=== PATIENT | female | born 1995 | race Caucasian/White ===

== ENCOUNTER 2019-04-13 10:17 | Emergency (ER) | payer BC | END 2019-04-13 15:37 | disposition home or self-care (01) | DX: R46.2 Strange and inexplicable behavior (principal) | CPT/HCPCS: 36415; 51702; 80048; 80076; 80305; 80307; 80329; 81001; 84703; 85025; 87077; 87086; 99284; G0480 ==

== ENCOUNTER 2019-10-13 10:34 | Inpatient (IN) | payer BC ==
[2019-10-13] VITALS (18 sets, daily range): BP systolic 92–117; BP diastolic 52–67
[~2019-10-13] VITALS: Ht 165.1 cm; Wt 51.3 kg
--- NOTE | 2019-10-13 10:40 | NUR ---
PT [facility] HOME TO ER BED 05. PER REPORT PT WAS FOUND BY FAMILY AT AROUND 1030 IN BED UNRESPONSIVE W/ BOTTLE OF BENADRYL AT BEDSIDE. PT WAS GIVEN NARCAN 4MG IV TOTAL. STILL UNRESPONSIVE. PT PLACED ON MONITOR, TACHY. NO RESPONSE TO ANY PAIN STIMULI. SATTING 100% AWAITING FOR MD MARCOS.
--- NOTE | 2019-10-13 10:46 | NUR ---
DR GARCIA AT BEDSIDE
[2019-10-13] MEDS ORDERED: ONDANSETRON HCL/PF 4 MG/2 ML VIAL ONE (10:49)
--- NOTE | 2019-10-13 10:52 | NUR ---
CALLED POISON CONTROL.
--- NOTE | 2019-10-13 10:55 | NUR ---
RT Pt received unarousable with mild abdominal muscle usage. Pt placed with a nasopharyngeal and on 6L simple mask. Pt has normal breathing and equal bilateral breath sounds and chest rise post nasopharyngeal. Dr. Ware notified and aware.
[2019-10-13 10:59] LABS: BASOPHILS % (AUTO) 0.6 % (0.0-2.0); EOSINOPHILS % (AUTO) 0.1 % (0.0-6.0); HEMATOCRIT 39 % (33-45); LYMPHOCYTES # (AUTO) 1.9 /CMM (0.8-4.8); MEAN CORPUSCULAR HGB CONC 33 g/dl (31.0-36.0); MEAN CORPUSCULAR VOLUME 89 fL (82-100); MONOCYTES # (AUTO) 0.1 /CMM (0.1-1.30); MONOCYTES % (AUTO) 2.1 % (2.0-12.0); NEUTROPHILS # (AUTO) 4.2 /CMM (1.8-8.9); NEUTROPHILS % (AUTO) 67.2 % (43.0-81.0); PLATELET COUNT (AUTO) 244 /CMM (150-450); RED BLOOD CELL COUNT(AUTO) 4.36 MIL/uL (4.0-5.2); WHITE BLOOD COUNT (AUTO) 6.2 K/uL (4.3-11.0)
[2019-10-13] MEDS ORDERED: IV NS 0.9% 1,000 ML BAG IV ONE (11:00)
[2019-10-13] MEDS ORDERED: ONDANSETRON HCL/PF 4 MG/2 ML VIAL IVP ONE (11:00)
[2019-10-13 11:01] LABS: APPEARANCE,URINE Clear (CLEAR); BILIRUBIN,URINE Negative (NEGATIVE); BLOOD, URINE Large Ery/uL (NEGATIVE); COLOR,URINE Yellow (YELLOW); KETONES,URINE 15 (NEGATIVE); LEUKOCYTE ESTERASE ,URINE Negative (NEGATIVE); NITRITE, URINE Negative (NEGATIVE); PH,URINE 6.5 (5.0-8.0); PROTEIN,URINE Negative (NEGATIVE); UGLUCOSE Negative (NEGATIVE); UROBILINOGEN,URINE 0.2 EU/dL (0.2)
[2019-10-13] MEDS ORDERED: LORA-258 PO (11:01)
[2019-10-13] MEDS ORDERED: LAMO25TA10 PO (11:01)
[2019-10-13] MEDS ORDERED: DIPH25CA83 PO (11:01)
[2019-10-13] MEDS ORDERED: TEMA15CA PO (11:01)
[2019-10-13 11:10] LABS: CALCIUM, SERUM 7.8 mg/dL (8.5-10.1); CARBON DIOXIDE 27 mmol/L (21-32); CHLORIDE 106 mmol/L (98-107); CREATININE 0.8 mg/dL (0.6-1.3); GLUCOSE 116 mg/dL (74-106); POTASSIUM 3.8 mmol/L (3.5-5.1); SODIUM SERUM 145 mmol/L (136-145); UREA NITROGEN, BLOOD 7 mg/dL (7-18)
[2019-10-13] MEDS ORDERED: Magnesium 1GM/D5W 100ML PREMIX 200 ML IV ONE (11:12)
[2019-10-13] MEDS: Magnesium 1GM/D5W 100ML PREMIX 100 ML IV SCH ×2 (11:13→12:13)
[2019-10-13 11:15] LABS: ALANINE AMINOTRANSFERASE 11 U/L (12-78); ALBUMIN 3.8 g/dL (3.4-5.0); ALCOHOL, BLOOD 80 mg/dL (0-0); ALKALINE PHOSPHATASE 55 U/L (46-116); ASPARTATE AMINOTRANSFERASE 12 U/L (15-37); BILIRUBIN,DIRECT 0.1 mg/dL (0.0-0.2); BILIRUBIN,TOTAL 0.4 mg/dL (0.2-1.0); TOTAL PROTEIN, SERUM 7.2 g/dL (6.4-8.2)
--- NOTE | 2019-10-13 11:15 | NUR ---
PAGED [facility].
[2019-10-13 11:16] LABS: ACETAMINOPHEN < 2 ug/ml (10-30); SALICYLATE 1.4 mg/dL (2.8-20.0)
[2019-10-13 11:19] LABS: BACTERIA,URINE Few /HPF (None Seen); RBC,URINE 21-50 /HPF (0-2); SQUAMOUS EPITHELIAL CELL,UR Few /HPF (None Seen); WBC,URINE 0-2 /HPF (0-3)
[2019-10-13] MEDS ORDERED: Calcium Chloride 13.6 MEQ/10ML VIAL IV ONE (11:30)
[2019-10-13] MEDS ORDERED: CALCIUM CHLORIDE 1,000 MG/10 ML DISP.SYRIN ONE (11:37)
--- NOTE | 2019-10-13 11:53 | NUR ---
CALLED NURSING SUP FOR ICU BED.
--- NOTE | 2019-10-13 12:47 | NUR ---
NURSING SUP GAVE ICU BED 257.
[2019-10-13] MEDS ORDERED: MAG HYDROX/AL HYDROX/SIMETH 30 ML UDC PO PRN (13:00)
[2019-10-13] MEDS ORDERED: ONDANSETRON HCL/PF 4 MG/2 ML VIAL IVP PRN (13:00)
[2019-10-13] MEDS ORDERED: Z GUARD REMEDY 2 OZ OINT TP PRN (13:00)
[2019-10-13] MEDS ORDERED: MAGNESIUM HYDROXIDE 30 ML UDC PO PRN (13:00)
[2019-10-13] MEDS ORDERED: LORAZEPAM INJ 2 MG/ML VIAL IV PRN (13:30)
[2019-10-13] MEDS ORDERED: ACTIVATED CHARCOAL 25 GM/120 ML TUBE PO ONE (13:30)
--- NOTE | 2019-10-13 13:35 | NUR ---
report given to adrienne charge nurse for myles; pt transported to icu
[2019-10-13] MEDS: IV NS 0.9% 1,000 ML IV PRN ×2 (13:41→18:30)
--- NOTE | 2019-10-13 14:00 | NUR ---
GLUING MACHINE OPERATOR AUTOMATIC: RON Kincaid called/updated with pt.current condition, neurosatus/comatose, VS, rectal T, ABG (pH 7.35/37/81/20) on r/a, said: give 4 L n/c, see new orders for labs, EKG
--- NOTE | 2019-10-13 14:00 | NUR ---
STRUCTURAL ANALYST: pt is comatose, unable to obtain info for full initial assessment, included suicidal assessment, pt.had suicidal attempts before
[2019-10-13 14:09] LABS: ABG BASE EXCESS -4.5 mmol/L; ABG OXYGEN SATURATION 94.9 % (92.0-98.5); ABG PCO2 37.8 mmHg (35.0-45.0); ABG PH 7.352 (7.350-7.450); ABG PO2 81.5 mmHg (75.0-100.0); COHb 0.6 % (0.5-1.5); MetHb 0.6 % (0.0-1.5); O2Hb 93.8 % (94.0-97.0); SITE, ABG Right Brachial; VENT MODE, BG RA
--- NOTE | 2019-10-13 14:30 | NUR ---
PROFESSOR OF INDUSTRIAL TECHNOLOGY: sent message to RON Kincaid/updated with current neurostatus, is going to see pt, EEG ordered
--- NOTE | 2019-10-13 15:00 | NUR ---
IMAGING SCHEDULER: pt.family is in room/updated with POC, orders
--- NOTE | 2019-10-13 16:15 | NUR ---
COURT CLERK: EEG done, updated with pt.current condition, VS, spoke with pt.family
--- NOTE | 2019-10-13 16:40 | NUR ---
MANNEQUIN MOUNTER: RD notified re order: brain MRI w/o contrast, scheduled on 10/13
--- NOTE | 2019-10-13 17:40 | NUR ---
OFFICE PROFESSIONALS: spoke with poison control x2, included Domingo /updated with pt.VS, current condition, EKG QTc, orders
[2019-10-13] MEDS: ACETAMINOPHEN 650 MG/SUPP.RECT RC PRN (17:55)
--- NOTE | 2019-10-13 18:15 | NUR ---
TRANSMISSION TESTER: RON Kincaid updated with pt neuro status, VS, orders, ordered V Valproic acid, ammonia level, see orders
[2019-10-13 18:20] LABS: CALCIUM, SERUM 7.5 mg/dL (8.5-10.1); CREATININE 0.9 mg/dL (0.6-1.3); MAGNESIUM 2.1 mg/dL (1.8-2.4); POTASSIUM 4.1 mmol/L (3.5-5.1)
--- NOTE | 2019-10-13 18:51 | NUR ---
GERIATRIC NURSE ASSISTANT: called to [facility] unit and sent FS for Dr.Makhani alberts
--- NOTE | 2019-10-13 19:30 | NUR ---
QUALIFIED CRAFT WORKER ELECTRICIAN OPENING NOTES, RECEIVED PATIENT IN BED, NON-RESPONSIVE TO VOICE OR PAIN. PATIENT IS ON RA TOLERATING WELL. NO SOB OR ACUTE DISTRESS NOTED AT THIS TIME. IV ON RAC #18 AND RW #18 PATENT AND FLUSHING WELL NS RUNNING AT 200ML/HR. PATIENT HAS AMMONIA, VALPROIC, PHOS, MAG, CHECK Q4H. EKG Q8H. PATIENT HAS ST ON MONITOR 110, BP IS NORMAL. ANDERSON DRAINING CLEAR/YELLOW URINE TO THE GRAVITY. SAFETY IN IN PLACE, PATIENT IS CLOSE TO THE STATION, BED IN LOW LOCKED POSITION, CALL LIGHT WITHIN REACH, WILL CONTINUE TO MONITOR THE PATIENT CLOSELY.
--- NOTE | 2019-10-13 19:40 | NUR ---
HEMODIALYSIS CATH PLACEMENT AND MID-LINE INSERTION ORDERED BY DR. VÁZQUEZ.
--- NOTE | 2019-10-13 19:45 | NUR ---
EDUCATED THE FAMILY ABOUT THE HD CATH PLACEMENT AND CONSENT FORM WAS SIGH BY FATHER AT THE BEDSIDE.
--- NOTE | 2019-10-13 19:58 | NUR ---
SERUM AMMONIA AND CT OF THE HEAD WO CONTRAST STAT, WAS ORDERED BY DR BERGER TO BE DONE BEFORE DIALYSIS
--- NOTE | 2019-10-13 20:20 | NUR ---
PATIENT TO CT SCAN FOR STAT CT OF THE HEAD MEHRAN LEON, CHARGE NURSE ESCORT THE PATIENT.
--- NOTE | 2019-10-13 21:37 | NUR ---
HEMODIALYSIS CATH INSERTION WAS DONE BY RON ROY.
--- NOTE | 2019-10-13 21:37 | NUR ---
HEMODIALYSIS CATHETER INSERTION Tractor Distributor: [facility] Domingo Faulkner NP Trialysis 13f 30cm Patient has order to insert HD catheter. Informed consent is signed and in chart. Insertion site determined to be right femoral vein. Patient was prepped using sterile technique with chlorhexidine. Patient was covered with a sterile drape and i donned a sterile gown. The insertion site was anesthetized with 1% lidocaine. Needle inserted under ultrasound guidance. Guidewire inserted through needle and needle removed. Small etsee made at insertion site of approximately 2 mm. Dilator inserted over guidewire then removed. Catheter inserted fully over guidewire. Guidewire removed. Blood return at all three ports. Caps placed on each port. Catheter secured with 2 sutures. Biopatch placed and covered with tegaderm. No s/s of complication. Tolerated well with minimal blood loss. Ebl 3ml.
[2019-10-13 22:19] LABS: CALCIUM, SERUM 7.1 mg/dL (8.5-10.1); MAGNESIUM 1.9 mg/dL (1.8-2.4); PHOSPHORUS 2.9 mg/dL (2.5-4.9); POTASSIUM 4.2 mmol/L (3.5-5.1)
--- NOTE | 2019-10-13 23:40 | NUR ---
HEMODIALYSIS IN PROGRESS. WILL CONTINUE TO MONITOR. 0100 PATIENT HAD ONE EPISODE OF EMESIS, MAIL TECHNICIAN, DR GALLARDO WAS NOTIFIED. RT AT BEDSIDE, NT SUCTIONED, WILL MONITOR CLOSELY. 0200 PATIENTS LUNGS ARE CLEAR. 0200 HEMODIALYSIS COMPLETED. NO OUTPUT.
[2019-10-14] VITALS (30 sets, daily range): BP systolic 96–152; BP diastolic 39–94
[2019-10-14] MEDS: LACTULOSE 10 G/15 ML UDC (PYXIS) PR SCH ×2 (00:01→05:43)
[2019-10-14] MEDS: IV NS 0.9% 1,000 ML IV PRN ×5 (00:59→22:08)
[2019-10-14 03:18] LABS: BASOPHILS % (AUTO) 0.3 % (0.0-2.0); HEMATOCRIT 41 % (33-45); HEMOGLOBIN 13.5 g/dL (11.5-14.8); LYMPHOCYTES # (AUTO) 0.7 /CMM (0.8-4.8); LYMPHOCYTES % (AUTO) 18.7 % (20.0-44.0); MEAN CORPUSCULAR HGB CONC 33 g/dl (31.0-36.0); MEAN CORPUSCULAR VOLUME 90 fL (82-100); MONOCYTES # (AUTO) 0.2 /CMM (0.1-1.30); MONOCYTES % (AUTO) 5.5 % (2.0-12.0); NEUTROPHILS # (AUTO) 2.6 /CMM (1.8-8.9); NEUTROPHILS % (AUTO) 75.5 % (43.0-81.0); PLATELET COUNT (AUTO) 180 /CMM (150-450); WHITE BLOOD COUNT (AUTO) 3.5 K/uL (4.3-11.0)
[2019-10-14 03:35] LABS: CALCIUM, SERUM 7.6 mg/dL (8.5-10.1); MAGNESIUM 1.5 mg/dL (1.8-2.4)
[2019-10-14 03:45] LABS: THYROID STIMULATING HORMONE 0.502 uIU/mL (0.358-3.74)
--- NOTE | 2019-10-14 03:50 | NUR ---
CRITICAL LAB VALUE RECEIVED FROM RADHA ROGERS, AMMONIA LEVEL 298 AT 0345, SENIOR ABAP DEVELOPER NOTIFIED AT 0349. NO NEW ORDERS PLACED. Addendum: 10/14/19 at 0743 by SHANIKA GONZALEZ RN 0715, CRITICAL LAB VALUE, AMMONIA LEVEL 256, ENDORSED TO CHARLES. GRESHAM RN
--- NOTE | 2019-10-14 07:00 | NUR ---
SELF SEALING FUEL TANK BUILDER CLOSING NOTES, PATIENT IN BED, STILL NON-RESPONSIVE TO VOICE OR PAIN. PATIENT IS ON 5L MASK, TOLERATING WELL. NO SOB OR ACUTE DISTRESS NOTED AT THIS TIME. IV ON RAC #18 AND RW #18 PATENT AND FLUSHING WELL, PATIENT HAS BONG MID-LINE NS RUNNING AT 200ML/HR. RIGHT FEMORAL CATHETER. . PATIENT HAS AMMONIA Q6H, VALPROIC, PHOS, MAG, CHECK Q4H. EKG Q8H. PATIENT HAS ST ON MONITOR 130's, BP IS NORMAL. ANDERSON DRAINING CLEAR/YELLOW URINE TO THE GRAVITY. SAFETY IN IN PLACE, PATIENT'S ROOM IS CLOSE TO THE STATION, BED IN LOW LOCKED POSITION, CALL LIGHT WITHIN REACH, ENDORSED THE PATIENT TO AM RN FOR MONSTER. Addendum: 10/14/19 at 1944 by MEHRAN ELDRIDGE RN MORTGAGE CONSULTANT - OPENING PATIENT IN BED, STILL NON-RESPONSIVE TO VOICE OR PAIN. PATIENT IS ON 5L MASK, TOLERATING WELL. NO SOB OR ACUTE DISTRESS NOTED AT THIS TIME. IV ON RAC #18 AND RW #18 PATENT AND FLUSHING WELL, PATIENT HAS BONG MID-LINE NS RUNNING AT 200ML/HR. RIGHT FEMORAL CATHETER. . PATIENT HAS AMMONIA Q6H, VALPROIC, PHOS, MAG, CHECK Q4H. EKG Q8H. PATIENT HAS ST ON MONITOR 130's, BP IS NORMAL. ANDERSON DRAINING CLEAR/YELLOW URINE TO THE GRAVITY. SAFETY IN IN PLACE, PATIENT'S ROOM IS CLOSE TO THE STATION, BED IN LOW LOCKED POSITION, CALL LIGHT WITHIN REACH, ENDORSED THE PATIENT TO AM RN FOR MONSTER.
--- NOTE | 2019-10-14 07:45 | NUR ---
AUTO BODY MECHANIC CLOSING NOTES, PATIENT IN BED, STILL NON-RESPONSIVE TO VOICE OR PAIN. PATIENT IS ON 5L MASK, TOLERATING WELL. NO SOB OR ACUTE DISTRESS NOTED AT THIS TIME. IV ON RAC #18 AND RW #18 PATENT AND FLUSHING WELL, PATIENT HAS BONG MID-LINE NS RUNNING AT 200ML/HR. RIGHT FEMORAL CATHETER WAS INSERTED FOR HD. HD WAS DONE AND NO OUTPUT WAS MADE. PATIENT HAS AMMONIA Q6H, VALPROIC, PHOS, MAG, CHECK Q4H. EKG Q8H. PATIENT HAS ST ON MONITOR 130's, BP IS NORMAL. ANDERSON DRAINING CLEAR/YELLOW URINE TO THE GRAVITY. SAFETY IN IN PLACE, PATIENT'S ROOM IS CLOSE TO THE STATION, BED IN LOW LOCKED POSITION, CALL LIGHT WITHIN REACH, ENDORSED THE PATIENT TO AM RN FOR MONSTER.
--- NOTE | 2019-10-14 08:30 | NUR ---
CERAMIC CAPACITOR PROCESSOR DR. ARCEO - VISITED PATIENT. SAW PATIENT FAMILY AT BEDSIDE.
[2019-10-14 08:38] LABS: CALCIUM, SERUM 8.4 mg/dL (8.5-10.1); MAGNESIUM 1.6 mg/dL (1.8-2.4); PHOSPHORUS 5.7 mg/dL (2.5-4.9); POTASSIUM 4.1 mmol/L (3.5-5.1)
[2019-10-14] MEDS: PANTOPRAZOLE 40 MG VIAL IV SCH (10:52)
--- NOTE | 2019-10-14 12:00 | NUR ---
QUALITY CONTROL HEAD - DR CARLTON VINCENT VISITED PATIENT
--- NOTE | 2019-10-14 12:30 | NUR ---
TRANSPORTATION ECONOMICS TEACHER PATIENT OPENING EYES AND FALL ASLEEP AGAIN . BUT DOES START TO WAKE UP AND YELL
[2019-10-14] MEDS: Magnesium 1GM/D5W 100ML PREMIX 100 ML IV SCH ×2 (12:59→15:57)
[2019-10-14 14:07] LABS: CALCIUM, SERUM 8.7 mg/dL (8.5-10.1); MAGNESIUM 1.9 mg/dL (1.8-2.4); PHOSPHORUS 4.5 mg/dL (2.5-4.9); POTASSIUM 4.9 mmol/L (3.5-5.1)
[2019-10-14] MEDS ORDERED: LEVOCARNITINE IV ONE (15:00)
[2019-10-14] MEDS ORDERED: NS 0.9% IV ONE (15:00)
--- NOTE | 2019-10-14 15:00 | NUR ---
CHAIN PULLER - Ray BROWN PSYCH PATIENT VISITED PATIENT
--- NOTE | 2019-10-14 15:00 | NUR ---
FORENSIC PHOTOGRAPHER - ACUTE RESTRAINT PATIENT ATTEMPTED TO PULL PUT NG TUBE, IV LINES. NOTIFIED DOCTOR
[2019-10-14] MEDS: LACTULOSE UDC 200 G in SODIUM CHLORIDE IRRIG SOLUTION 400 ML IR SCH ×3 (16:38→22:45)
--- NOTE | 2019-10-14 19:30 | NUR ---
BOOKBINDING MACHINE OPERATOR DISTRIBUTION WAREHOUSE MANAGER CLOSING NOTES, PATIENT IN BED, RESTING COMFORTABLY IN BED. PATIENT STARTING TO OPEN EYES AND FOLLOW A FEW COMMANDS PATINT DOS FALL BACK ASLEEP. PATIENT IS ON 5L MASK, TOLERATING WELL. NO SOB OR ACUTE DISTRESS NOTED AT THIS TIME. IV ON RAC #18 AND RW #18 PATENT AND FLUSHING WELL, PATIENT HAS BONG MID-LINE NS RUNNING AT 200ML/HR. RIGHT FEMORAL CATHETER. . PATIENT HAS AMMONIA Q6H, VALPROIC, PHOS, MAG, CHECK Q4H. EKG Q8H. PATIENT HAS ST ON MONITOR 120s, . ANDERSON DRAINING CLEAR/YELLOW URINE @ 2600 ML TO THE GRAVITY. BED LOCKED AND LOWEST POSITION CALL LIGHT WITH IN REACH ALL SAFETY MEASURE IMPLEMENTED PER HOSPITAL POLICY. PATIENT DOES HAVE SOFT RESTRAINS RENEW AT 1500. DOCTOR MARIELOS AWARE . ENDORSED TO PM SHIFT
--- NOTE | 2019-10-14 19:35 | NUR ---
SMOKING PIPE COATER OPENING NOTES, RECEIVED PATIENT IN BED, AGITATED, FALLS BACK TO SLEEP FAST. PATIENT IS ON 5L MASK, TOLERATING WELL. NO SOB OR ACUTE DISTRESS NOTED AT THIS TIME. IV ON RAC #18 AND RW #18 PATENT AND FLUSHING WELL, PATIENT HAS BONG MID-LINE NS RUNNING AT 200ML/HR. RIGHT FEMORAL CATHETER. PATIENT HAS AMMONIA Q6H, VALPROIC, PHOS, MAG, CHECK Q4H. EKG Q8H. PATIENT HAS ST ON MONITOR. ANDERSON DRAINING CLEAR/YELLOW URINE TO THE GRAVITY. BED LOCKED AND LOWEST POSITION, CALL LIGHT WITH IN REACH ALL SAFETY MEASURE IMPLEMENTED PER HOSPITAL POLICY. PATIENT DOES HAVE SOFT RESTRAINS RENEW AT 1500. DOCTOR MARIELOS AWARE .WILL CONTINUE TO MONITOR
[2019-10-14] MEDS ORDERED: LEVOCARNITINE IV SCH (23:00)
[2019-10-14] MEDS ORDERED: NS 0.9% IV SCH (23:00)
[2019-10-15] VITALS (26 sets, daily range): BP systolic 102–165; BP diastolic 64–114
[2019-10-15] MEDS: ACETAMINOPHEN 650 MG/SUPP.RECT RC PRN ×2 (01:08→08:45)
[2019-10-15] MEDS: LACTULOSE UDC 200 G in SODIUM CHLORIDE IRRIG SOLUTION 400 ML IR SCH ×2 (03:12→06:44)
[2019-10-15] MEDS: IV NS 0.9% 1,000 ML IV PRN ×3 (03:16→20:17)
[2019-10-15 05:18] LABS: BASOPHILS % (AUTO) 0.1 % (0.0-2.0); EOSINOPHILS % (AUTO) 0.3 % (0.0-6.0); HEMATOCRIT 35 % (33-45); HEMOGLOBIN 11.4 g/dL (11.5-14.8); LYMPHOCYTES # (AUTO) 0.4 /CMM (0.8-4.8); LYMPHOCYTES % (AUTO) 3.5 % (20.0-44.0); MEAN CORPUSCULAR HGB CONC 33 g/dl (31.0-36.0); MEAN CORPUSCULAR VOLUME 89 fL (82-100); MONOCYTES # (AUTO) 0.1 /CMM (0.1-1.30); MONOCYTES % (AUTO) 0.7 % (2.0-12.0); NEUTROPHILS # (AUTO) 10.7 /CMM (1.8-8.9); NEUTROPHILS % (AUTO) 95.4 % (43.0-81.0); PLATELET COUNT (AUTO) 128 /CMM (150-450); RED BLOOD CELL COUNT(AUTO) 3.88 MIL/uL (4.0-5.2); WHITE BLOOD COUNT (AUTO) 11.2 K/uL (4.3-11.0)
[2019-10-15 05:35] LABS: CALCIUM, SERUM 9.1 mg/dL (8.5-10.1); CREATININE 0.8 mg/dL (0.6-1.3); MAGNESIUM 1.8 mg/dL (1.8-2.4); PHOSPHORUS 2.2 mg/dL (2.5-4.9)
--- NOTE | 2019-10-15 07:47 | NUR ---
DISCONTINUED ANDERSON CATH PER DR LAL ORDER.
--- NOTE | 2019-10-15 07:52 | NUR ---
SPORT SHOE SPIKE ASSEMBLER CLOSING NOTES, PATIENT IN BED, RESTING COMFORTABLY. PATIENT TALKS BUT NOT VERY CLEAR, AND FOLLOW A FEW COMMANDS. PATIENT IS ON 4L NS, TOLERATING WELL. NO SOB OR ACUTE DISTRESS NOTED AT THIS TIME. IV ON RAC #18 AND RW #18 PATENT AND FLUSHING WELL, PATIENT HAS BONG MID-LINE NS RUNNING AT 200ML/HR. RIGHT FEMORAL CATHETER. PATIENT HAS EKG Q8H. PATIENT HAS ST ON MONITOR 120s, ANDERSON CATH WAS DISCONTINUED. BED LOCKED AND LOWEST POSITION CALL LIGHT WITH IN REACH ALL SAFETY MEASURE IMPLEMENTED PER HOSPITAL POLICY. PATIENT DOES HAVE SOFT RESTRAINS RENEW AT 1500. ENDORSED TO PM SHIFT
--- NOTE | 2019-10-15 08:00 | NUR ---
ICU/RN AM SHIFT OPENING NOTES Received pt drowsy, mumbling at times coherent words, noted with fever 102. on 4L O2 via N/C saturating @ 97%, respirations even and unlabored. on Tele monitoring sinus tachy, HR 123. With on going IV infusion of NS 100cc/hr, IV sites flushed, patent with no s/s of infection. Bilateral wrist restraints in placed, released to check for comfort and circulation, then placed back. On cooling measures. PT on NPO status at this time. Scheduled AM meds to be given. CL within reached and safety maintained. On going monitoring.
[2019-10-15] MEDS: PANTOPRAZOLE 40 MG VIAL IV SCH (08:26)
--- NOTE | 2019-10-15 11:22 | NUR ---
ICU/RN ROUNDS Pt slowly awaking up and coherent, response appropriately. Speech therapist will come back this afternoon to assess if Pt would be more alert and to participate in swallow evaluation.
--- NOTE | 2019-10-15 14:00 | NUR ---
ICU/RN SWALLOW EVAL Pt seen by Speech Therapist for swallow evaluation. Pt passed will begin pureed diet. Noted. Monitoring continued.
[2019-10-15] MEDS: ACETAMINOPHEN 325 MG TABLET PO PRN ×2 (14:11→20:28)
--- NOTE | 2019-10-15 14:15 | NUR ---
ICU/RN ROUNDS - DR. DE GUZMAN Updated Pt's condition. Pt seen & examined by Dr. De Guzman, per MD will order blood culture and urine culture d/t persistent fever. Also to check urine retention. Monitoring continued. Addendum: 10/15/19 at 1544 by JAZMYNE ROCHE RN Addendum: Urine checked, pt has not voided since the gongora catheter was removed before beginning of shift. Bladder scan showed more than 800ml of urine, placed urinary catheter.
[2019-10-15] MEDS ORDERED: NEUTRA PHOS 1 POWD.PACKET PO ONE (15:30)
[2019-10-15] MEDS: CEFTRIAXONE 1 G in IV D5W 50 ML IV SCH (15:48)
--- NOTE | 2019-10-15 16:27 | NUR ---
ICU/RN MRI - BRAIN W/O CONTRAST PT LEFT ICU IN STABLE CONDITION VIA GURARIN ACCOMPANIED BY TRANSPORT AND DOBIE MAN WITH PT'S FATHER AND MYSELF. Addendum: 10/15/19 at 1742 by JAZMYNE ROCHE RN ADDENDUM: PT RETURNED TO ICU IN STABLE CONDITION. TOLERATED PROCEDURE.
--- NOTE | 2019-10-15 18:49 | NUR ---
ICU/RN ROUNDS - DR. SU UPDATED PT'S CONDITION. PT SEEN & EXAMINED BY DR. SU WITH PT'S PATENT AT BEDSIDE.
--- NOTE | 2019-10-15 19:22 | NUR ---
ICU/RN AM SHIFT CLOSING NOTES ALL NEEDS MET. PT ENDORSED TO PM NURSE TO CONTINUE CARE. CL WITHIN REACHED AND SAFETY MAINTAINED.
--- NOTE | 2019-10-15 20:02 | NUR ---
ICU/RN OPENING NOTE RECEIVED PATIENT IN BED CURRENTLY WITH NO SIGN OF ANY DISTRESS. PATIENT IS ON 4L OF 02 WITH NASAL CANNULA TOLERATING AT 99% WITH NO SIGN OF ANY SOB. PATIENT ON THE MONITOR SHOWING SINUS TACHY WITH HR STEADY IN THE 130'S. TEMP IS BEING MONITORED EVERY HOUR WITH BEDSIDE MONITOR. FC DRAINING VIA GRAVITY WITH YELLOW URINE OUTPUT. PATIENT HAS A LAC #18, RWRIST #18, A RT FEMORAL HD ACCESS AND THE BONG MIDLINE WITH NS RUNNING AT 100CC/HR. ALL SAFETY PRECAUTIONS HAVE BEEN MET. WILL CONTINUE TO MONITOR PATIENT THROUGHOUT SHIFT.
[2019-10-16] VITALS (27 sets, daily range): BP systolic 101–150; BP diastolic 53–81
[2019-10-16] MEDS: ACETAMINOPHEN 325 MG TABLET PO PRN ×4 (02:45→22:27)
[2019-10-16 04:40] LABS: BASOPHILS % (AUTO) 0.1 % (0.0-2.0); EOSINOPHILS % (AUTO) 0.5 % (0.0-6.0); HEMATOCRIT 31 % (33-45); HEMOGLOBIN 10.5 g/dL (11.5-14.8); LYMPHOCYTES # (AUTO) 0.4 /CMM (0.8-4.8); LYMPHOCYTES % (AUTO) 2.8 % (20.0-44.0); MEAN CORPUSCULAR HGB CONC 33 g/dl (31.0-36.0); MEAN CORPUSCULAR VOLUME 89 fL (82-100); MONOCYTES # (AUTO) 0.1 /CMM (0.1-1.30); MONOCYTES % (AUTO) 0.7 % (2.0-12.0); NEUTROPHILS # (AUTO) 12.9 /CMM (1.8-8.9); NEUTROPHILS % (AUTO) 95.9 % (43.0-81.0); PLATELET COUNT (AUTO) 127 /CMM (150-450); RED BLOOD CELL COUNT(AUTO) 3.55 MIL/uL (4.0-5.2); WHITE BLOOD COUNT (AUTO) 13.4 K/uL (4.3-11.0)
[2019-10-16 05:05] LABS: ALBUMIN 2.3 g/dL (3.4-5.0); BILIRUBIN,TOTAL 0.9 mg/dL (0.2-1.0); CALCIUM, SERUM 8.1 mg/dL (8.5-10.1); CREATININE 0.7 mg/dL (0.6-1.3); MAGNESIUM 1.7 mg/dL (1.8-2.4); PHOSPHORUS 1.6 mg/dL (2.5-4.9); TOTAL PROTEIN, SERUM 5.6 g/dL (6.4-8.2)
[2019-10-16 05:26] LABS: POTASSIUM 2.8 mmol/L (3.5-5.1)
[2019-10-16] MEDS: IV NS 0.9% 1,000 ML IV PRN (06:15)
--- NOTE | 2019-10-16 06:33 | NUR ---
PHYSICIAN RELATIONS REPRESENTATIVE NOTE RECEIVED CRITICAL LAB FROM [facility]. POTASSIUM 2.8 WILL CALL CASE FITTER FOR ORDERS.
--- NOTE | 2019-10-16 06:34 | NUR ---
CEMENTER NOTE RECEIVED ORDERS FROM DR. DEVRIES FOR CRITICAL POTASSIUM LEVEL OF 2.8. ORDERED 2GM OF MG IV, 40MEQ OF KCL IV, AND 20MEQ OF KLOR CON POWDER. READ BACK ADDRESSED WILL CONTINUE TO MONITOR PATIENT.
--- NOTE | 2019-10-16 07:08 | NUR ---
ICU/RN CLOSING NOTE PATIENT SLEEPING IN BED CURRENTLY WITH NO SIGN OF ANY DISTRESS. PATIENT ON 4L OF 02 ON NASAL CANNULA SATURATING AT 99% NO SIGN OF ANY SOB. PATIENT MORE ALERT THAN PRIOR. NS RUNNING ON BONG AT 100CC/HR. ALL SAFETY PRECAUTION HAVE BEEN APPLIED. ENDORSED PATIENT TO MORNING SHIFT NURSE FOR MONSTER.
--- NOTE | 2019-10-16 08:00 | NUR ---
ICU/RN AM SHIFT OPENING NOTES RECEIVED PT ASLEEP IN BED, EASILY AROUSED, PT A/O X 2-3, ABLE TO VERBALIZED NEEDS, PT MORE ALERT, CONVERSANT WITH CLEAR SPEECH. NO ACUTE DISTRESS OR CHANGE OF CONDITION NOTED. ON 4L O2 VIA N/C SATURATING @ 97%, RESPIRATIONS EVEN & UNLABORED, LUNG SOUNDS DIMINISHED. ON TELE WITH SINUS TACHY, HR 122. WITH ON GOING IV INFUSION OF NS @ 100CC/HR, IV SITE PATENT WITH NO S/S OF INFECTION. ANDERSON CATHETER INTACT WITH CLEAR YELLOW URINE OUTPUT. PT IS COMFORTABLE, PT'S PARENTS AT BEDSIDE. SCHEDULED AM MEDS TO BE GIVEN. CL WITHIN REACHED AND SAFETY MAINTAINED. ON GOING MONITORING.
[2019-10-16] MEDS: PANTOPRAZOLE 40 MG VIAL IV SCH (08:23)
[2019-10-16] MEDS: Magnesium 1GM/D5W 100ML PREMIX 100 ML IV SCH ×2 (08:23→09:57)
[2019-10-16] MEDS: POTASSIUM CL. PREMIX PERIPHER. 50 ML IV SCH ×4 (08:23→12:13)
[2019-10-16] MEDS ORDERED: POTASSIUM CHLORIDE 20 MEQ POWDER PACKET GT ONE (08:30)
--- NOTE | 2019-10-16 10:00 | NUR ---
ICU/RN ROUNDS - CONSULTS PT SEEN & BOTH ELASTIC ATTACHER CHAINSTITCH (DANIA) AND JINA (PSYCHIATRY), SPOKE EXTENSIVELY WITH PT'S PARENTS.
--- NOTE | 2019-10-16 10:13 | NUR ---
director nicu Dr. Faviola Fournier and DEALER ACCOUNT MANAGER met with pt' s parents in ICU and discussed extensively regarding pt's psychiatric history. Parents report that pt. has been accepted by her psychiatrist Dr. Leeroy Sparks at [facility] and would like pt. to be transferred to that facility. Dr. Leeroy Shields can be reached at / . rn child Padmaja will be coming to evaluate the pt. SEAN Nieto and GUERDA Diaz made aware.
--- NOTE | 2019-10-16 10:58 | NUR ---
ICU/RN POISON CONTROL RECEIVED A CALL FROM POISON CONTROL. UPDATED PT'S CONDITION.
--- NOTE | 2019-10-16 11:20 | NUR ---
ICU/RN CRISIS TEAM RECEIVED A CALL FROM ASHKAN OF CRISIS TEAM NOTIFIED ME THAT THEY WILL SEE PT @ 1300. CHARGE NURSE MADE AWARE.
--- NOTE | 2019-10-16 13:00 | NUR ---
ICU/RN CRISIS TEAM PT SEEN AND EVALUATED BY ASHKAN SOTELO (OF CRISIS TEAM), PER ASHKAN PT TO BE PLACED ON HOLD FOR 72 HOURS. CHARGE NURSE NOTIFIED.
[2019-10-16] MEDS: Potassium Phosphate meq 11 MEQ in IV D5W 100 ML IV SCH ×2 (13:26→16:09)
[2019-10-16] MEDS: CEFTRIAXONE 1 G in IV D5W 50 ML IV SCH (14:36)
--- NOTE | 2019-10-16 16:26 | NUR ---
ICU/RN INCREASED TEMP PT NOTED WITH TEMP (RECTAL) 103.[address] CORONADO. WITH ORDER RECEIVED FOR SPUTUM CULTURE PER MD WILL CONSULT WITH INFECTIOUS DISEASE. PT ON COOLING BLANKET. ON GOING MONITORING.
[2019-10-16] MEDS ORDERED: VANCOMYCIN 1 GM in IV D5W 250 ML IV ONE (17:00)
--- NOTE | 2019-10-16 17:00 | NUR ---
ICU/RN ROUNDS - DR. BERGER PT SEEN & EXAMINED BY DR. BERGER WITH PARENTS AT BEDSIDE. ON GOING MONITORING.
[2019-10-16] MEDS ORDERED: FEE PK DOSING 1 MIN EA MC ONE (17:11)
--- NOTE | 2019-10-16 17:11 | NUR ---
RT NOTE EKG PERFORMED. FAMILY BEDSIDE.
[2019-10-16] MEDS ORDERED: VANCOMYCIN 1 GM in IV D5W 250 ML IV SCH (17:15)
--- NOTE | 2019-10-16 17:59 | NUR ---
ICU/RN INFECTIOUS DISEASE UPDATED PT'S CONDITION. PT BEING SEEN & EXAMINED BY ROSANGELA (ID). MONITORING CONTINUED.
[2019-10-16] MEDS: PIPERACILLIN /TAZOBACTAM 4.5 G in IV D5W 50 ML IV SCH ×2 (18:56→22:26)
--- NOTE | 2019-10-16 18:56 | NUR ---
MS RN NOTES PATIENT TRANSFER FROM ICU ROOM 257 REPORT GIVEN BY CORDELL CROFT , ALERT ORIENTED X 2-3. SEEN BY ORVILLE SHUKLA , NOTIFIED ZOSYN IV TO BE GIVEN NOW, FAMILY AT BEDSIDE, SEEN BY ORVILLE SHUKLA SAID PATIENT TRANSFER BACK TO ICU. CALLED DR HATCH, AWAITING FOR CALL BACK.
--- NOTE | 2019-10-16 19:00 | NUR ---
MS RN NOTES AWAITING FOR CALL BACK FROM DR HATCH FOR ORDERS, ENDORSED TO NIGHT NURSE FOR CONTINUITY OF CARE.
--- NOTE | 2019-10-16 19:00 | NUR ---
ICU/RN BEDSIDE REPORT PT TRANSFERRED TO ROOM 201, BEDSIDE REPORT GIVEN TO NURSE ONOFRE. ENDORSED TO CONTINUE CARE.
[2019-10-16] MEDS ORDERED: LEVOFLOXACIN 750 MG /D5W 150ML 750 MG in PREMIX 1 EA IV SCH (19:30)
--- NOTE | 2019-10-16 19:45 | NUR ---
ICU/RN AM SHIFT END NOTES ALL NEED MET. REPORT GIVEN TO ICU NURSE AND PT ENDORSED TO PM NURSE TO CONTINUE CARE.
--- NOTE | 2019-10-16 19:50 | NUR ---
HOSPICE MANAGER OPENING NOTE RECEIVED PATIENT AROUND THIS TIME. PATIENT TRANSFERRED FROM MED SURG UNIT. A/O X3. BREATHING EVEN AND NON LABORED. NO SOB NOTED. ON 2 L O2 VIA NC. ABLE TO VERBALLY MAKE NEEDS KNOWN. FAMILY AT BEDSIDE AT THIS TIME. PATIENT HAS SITTER FOR ENVIRONMENTAL PROTECTION GEOLOGIST. IN NO APPARENT DISTRESS NOTED AT THIS TIME. NO COMPLAINTS OF PAIN AT THIS TIME. PATIENT HAS ANDERSON CATH. URINE IS CLEAR AND YELLOW IN COLOR. PATIENT ABLE TO REPOSITION SELF IN BED. NOTED ELEVATED TEMPERATURE, 101.4 F. COOLING BLANKET APPLIED AND TOLERATING WELL. ON HOURLY TEMPERATURE ASSESSMENT. SKIN IS INTACT. BONG MIDLINE PATENT AND SALINE LOCKED. BED IS LOWERED TO LOW POSITION AND LOCKED FOR SAFETY. WILL CONTINUE TO MONITOR.
--- NOTE | 2019-10-16 20:00 | NUR ---
MS RN NOTES TRANSFERRED BACK TO ICU ROOM 257 AFTER RECEIVING REPORT FROM MORNING SHIFT. RECEIVED ORDER FROM TO TRANSFER FOR CLOSE MONITORING OF INCREASED TEMPERATURE AND HEART RATE. FAMILY ON BEDSIDE AWARE. NURSING CORPORATE SERVICES MANAGER NOTIFIED. TRANSFERRED ON HOSPITAL BED VIA ACLS ACCOMPANIED BY KILN FURNITURE CASTER AND ANOTHER RN. PATIENT ALERT AND ORIENTED X 3, AWARE OF WHATS HAPPENING. REPORT GIVEN TO GUERDA COLES.
[2019-10-16] MEDS: VANCOMYCIN 1 GM in IV D5W 250 ML IV SCH (20:29)
--- NOTE | 2019-10-16 21:00 | NUR ---
WEIGHT AND TEST BAR CLERK NOTE RECEIVED REPORT FROM LAB FOR BLOOD CULTURE POSITIVE GRAM COCCI IN CLUSTERS. MARLON MANE MADE AWARE AND RECEIVED NO NEW ORDERS.
[2019-10-17] VITALS (15 sets, daily range): BP systolic 103–118; BP diastolic 59–77
--- NOTE | 2019-10-17 | NUR ---
OIM CONSULTANT NOTE PATIENT COMPLAINED OF INSOMNIA. CALLED AND INFORMED DR. DEVRIES. RECEIVED NEW ORDER FOR RESTORIL 7.5 MG PRN HS. ORDERS NOTED AND CARRIED OUT. WILL CONTINUE TO MONITOR.
[2019-10-17] MEDS: TEMAZEPAM 7.5 MG CAPSULE PO PRN (00:23)
[2019-10-17] MEDS: VANCOMYCIN 1 GM in IV D5W 250 ML IV SCH ×3 (01:28→17:24)
--- NOTE | 2019-10-17 04:00 | NUR ---
ASBESTOS BRAKE LINING FINISHER HELPER NOTE PATIENT REFUSED TO BE CLEAN AT THIS TIME. PER PATIENT, SHE WOULD LIKE TO BE CLEANED AFTER BREAKFAST. PATIENT IS A/O X3. WILL CONTINUE TO MONITOR.
[2019-10-17] MEDS: PIPERACILLIN /TAZOBACTAM 4.5 G in IV D5W 50 ML IV SCH ×4 (04:31→22:20)
[2019-10-17 04:46] LABS: BASOPHILS % (AUTO) 0.5 % (0.0-2.0); EOSINOPHILS % (AUTO) 0.8 % (0.0-6.0); HEMATOCRIT 31 % (33-45); HEMOGLOBIN 10.7 g/dL (11.5-14.8); LYMPHOCYTES # (AUTO) 0.6 /CMM (0.8-4.8); LYMPHOCYTES % (AUTO) 8.9 % (20.0-44.0); MEAN CORPUSCULAR HGB CONC 34 g/dl (31.0-36.0); MEAN CORPUSCULAR VOLUME 89 fL (82-100); MONOCYTES # (AUTO) 0.2 /CMM (0.1-1.30); MONOCYTES % (AUTO) 2.8 % (2.0-12.0); NEUTROPHILS # (AUTO) 5.5 /CMM (1.8-8.9); PLATELET COUNT (AUTO) 151 /CMM (150-450); RED BLOOD CELL COUNT(AUTO) 3.53 MIL/uL (4.0-5.2); WHITE BLOOD COUNT (AUTO) 6.3 K/uL (4.3-11.0)
[2019-10-17 05:01] LABS: CALCIUM, SERUM 7.8 mg/dL (8.5-10.1); CREATININE 0.7 mg/dL (0.6-1.3); MAGNESIUM 1.6 mg/dL (1.8-2.4); PHOSPHORUS 1.6 mg/dL (2.5-4.9); POTASSIUM 3.3 mmol/L (3.5-5.1)
[2019-10-17] MEDS: ACETAMINOPHEN 325 MG TABLET PO PRN ×3 (05:16→20:01)
--- NOTE | 2019-10-17 07:00 | NUR ---
SPEECH COMMUNICATION PROFESSOR CLOSING NOTE PATIENT IS IN BED RESTING. SITTER AT BEDSIDE. BREATHING EVEN AND NON LABORED. ON O2 2 L VIA NC. A/O X3. IN NO APPARENT DISTRESS NOTED AT THIS TIME. ALL DUE MEDS GIVEN ORDERED AND TOLERATED WELL. PATIENT STILL NOTED WITH ELEVATED TEMP. COOLING MEASURES AND TYLENOL PRN MED GIVEN. PATIENT REFUSED BED BATH IN THIS SHIFT. EXPLAINED RISKS AND BENEFITS, STILL PATIENT REFUSED. PATIENT VERBALIZED SHE WOULD LIKE HER BED BATH AFTER BREAKFAST. SPUTUM SAMPLE COLLECTED AND GIVEN TO LAB FOR SPUTUM CULTURE. PATIENT IS KEPT COMFORTABLE THROUGHOUT THE NIGHT. WILL ENDORSE TO AM SHIFT RN FOR CONTINUATION OF CARE.
--- NOTE | 2019-10-17 07:45 | NUR ---
RN NOTE: Received patient in bed, asleep, and easily arousable to tactile stimuli. Respiration even and unlabored saturating 98% with O2 2L/min via NC. HOB elevated. Bed alarmed and locked at all times. Bedside report was given by GUERDA Krishnan for continuity of care and Dr. Kim cleared the patient to be downgraded to telemetry unit. Patient is on a 5150 hold, 1:1 sitter. Patient denied any suicidal ideation. [place] catheter in placed with yellow urine draining to gravity. Patient was febrile 101.1F with a rectal probe and cooling blanket was in placed to thermoregulate. Breakfast tray was served at the bedside. Call light within reach. Needs anticipated.
--- NOTE | 2019-10-17 09:05 | NUR ---
RECEIVED PHONE REPORT FROM COLTON CROFT
--- NOTE | 2019-10-17 09:15 | NUR ---
RECEIVED PT FROM ROOM 257 IN ICU. PT AWAKE IN BED, ALERT AND ORIENTED X 2, ON 02 VIA NC 2L/MIN, SATURATING WELL, RESPIRATIONS EVEN AND UNLABORED, NO SIGNS OF RESPIRATORY DISTRESS NOTED. ANDERSON CATHETER INTACT, PATENT, DRAINING YELLOW CLEAR URINE. SINUS TACHY ON TELE MONITOR, HR 110. RIGHT UPPER ARM MIDLINE INTACT, PATENT, SECURED WITH CLEAN DRESSING. RIGHT WRIST IV SITE G18 INTACT, PATENT, WITH HEP LOCK IN PLACE. BED IN LOW POSITION, LOCKED, CALL LIGHT WITHIN REACH. INTRODUCED SELF TO PT AND DISCUSSED PLAN OF CARE.
--- NOTE | 2019-10-17 09:15 | NUR ---
RN NOTE: Patient was transported via ACLS protocol to Room 104 Telemetry status. Patient remained on 1:1 sitter and on 5150 hold. Patient was seen by Dr. De Guzman and Dr. Ravi in the ICU prior to the transfer. Patient was very cooperative and calm upon transfer and her parents were at the bedside during the doctor's visits. Still noted with fever 101.1F via rectal probe. Cooling measures were implemented. Handed report to GUERDA Pruitt for continuity of care. Patient denied any pain at this time.
[2019-10-17] MEDS: PANTOPRAZOLE 40 MG VIAL IV SCH (09:38)
[2019-10-17] MEDS ORDERED: POLYETHYLENE GLYCOL 3350 17 GM POWD.PACK PO PRN (10:00)
[2019-10-17] MEDS: ACETAMINOPHEN 650 MG/SUPP.RECT RC PRN (10:24)
[2019-10-17] MEDS ORDERED: Magnesium 1GM/D5W 100ML PREMIX 100 ML IV SCH (10:30)
--- NOTE | 2019-10-17 10:30 | NUR ---
PT REQUESTING TO REMOVE ANDERSON CATHETER AND RECTAL PROBE, STATES IT IS CAUSING HER DISCOMFORT
--- NOTE | 2019-10-17 10:36 | NUR ---
REMOVED ANDERSON CATHETER AND RECTAL THERMOMETER PROBE. DR. CORONADO APPROVED.
[2019-10-17] MEDS: Potassium Phosphate meq 11 MEQ in IV D5W 100 ML IV SCH ×2 (10:39→13:39)
--- NOTE | 2019-10-17 10:46 | NUR ---
PT BY BEDSIDE
--- NOTE | 2019-10-17 11:35 | NUR ---
PT REQUESTED TO REMOVE IV SITE FROM RIGHT WRIST. DRESSING APPLIED.
--- NOTE | 2019-10-17 16:18 | NUR ---
PT'S MOTHER IS REQUESTING THAT DR. RASHID CONTACT HER DAUGHTER PSYCHIATRIST DR. SAKINA CARSON IN ORDER TO ADJUST HER DAUGHTER'S PSYCH MEDICATIONS. OFFICE NUMBER: [phone] EMAIL: [email or web address]
--- NOTE | 2019-10-17 16:20 | NUR ---
CALLED AND LEFT VOICEMAIL FOR DR. RASHID REGARDING PT'S PSYCHIATRIST CONTACT INFO AND MOTHERS REQUEST REGARDING GETTING IN TOUCH WITH DR. SAKINA CARSON REGARDING PT'S PSYCH MEDS/ADJUSTMENTS. FAMILY AWARE.
--- NOTE | 2019-10-17 17:34 | NUR ---
SPOKE WITH PENDING SALE TO [facility] N[facility], WHO STATED HE WILL BE HERE TOMORROW MORNING AND WILL REMOVE HD CATH. FAMILY AWARE.
--- NOTE | 2019-10-17 18:45 | NUR ---
BEHAVIOR SPECIALIST CLOSING NOTE PT AWAKE IN BED, ALERT AND ORIENTED X 4, ON 02 VIA NC 2L/MIN, SATURATING WELL, RESPIRATIONS EVEN AND UNLABORED, NO SIGNS OF RESPIRATORY DISTRESS NOTED. SINUS TACHY ON TELE MONITOR, HR 106. RIGHT UPPER ARM MIDLINE INTACT, PATENT, SECURED WITH CLEAN DRESSING. RIGHT FEMORAL HD CATH INTACT. FAMILY BY BEDSIDE. PROVIDED SAFETY AND COMFORT TO PT THROUGHOUT SHIFT, ALL DUE MEDS GIVEN. SAFETY MEASURES IN PLACE, BED IN LOW POSITION, LOCKED, CALL LIGHT WITHIN REACH. ENDORSED TO [facility] SHIFT NURSE FOR MONSTER.
--- NOTE | 2019-10-17 19:00 | NUR ---
RN OPENING NOTES: PATIENT IN BED, AWAKE, VERBALLY RESPONSIVE. NO RESPIRATORY DISTRESS. ON O2 AT 2LPM VIA NC, TOLERATING WELL, O2 SAT 96%. NO C/O PAIN. FAMILY AT BEDSIDE, QUESTIONS ANSWERED AND UPDATED ON PATIENT STATUS. ON TRANSPORT DRIVER, [place] HR 100s. PER AM SHIFT NURSE, PATIENT HAD FEVER IN ICU. CHECKED TEMP, 99.3F. COOLING MEASURES PROVIDED. BONG MIDLINE C/D/I, FLUSHING WELL. (R) FEMORAL HD CATH INTACT. SITTER AT BEDSIDE. CALL LIGHT PLACED WITHIN REACH. WILL CONT. TO MONITOR.
[2019-10-18] VITALS (7 sets, daily range): BP systolic 93–131; BP diastolic 56–74
[2019-10-18] MEDS: VANCOMYCIN 1.25 GM in IV D5W 250 ML IV SCH ×3 (01:06→17:35)
[2019-10-18] MEDS: ACETAMINOPHEN 650 MG/SUPP.RECT RC PRN (01:09)
--- NOTE | 2019-10-18 01:21 | NUR ---
RN NOTE: PATIENT TEMP 101F. ON COOLING BLANKET TOLERATED. TYLENOL 650 MG SUPP ORDERED ADMINISTERED VIA RECTAL. WILL CONT. TO MONITOR. Addendum: 10/18/19 at 0243 by SAM MARQUEZ RN AT 021, RECHECKED PATIENT TEMP, 99.5F. REMAINS ON COOLING MEASURES. WILL CONT. TO MONITOR.
--- NOTE | 2019-10-18 03:44 | NUR ---
RN NOTE: FREQUENT ROUNDING DONE. PATIENT ASLEEP AND RESTING COMFORTABLY. NO ACUTE DISTRESS. WILL CONT. TO MONITOR.
[2019-10-18] MEDS: PIPERACILLIN /TAZOBACTAM 4.5 G in IV D5W 50 ML IV SCH ×4 (05:46→23:05)
--- NOTE | 2019-10-18 06:39 | NUR ---
RN CLOSING NOTES: PATIENT IN BED, ASLEEP, BUT EASY TO AROUSE. NO RESPIRATORY DISTRESS. ON O2 AT 2LPM VIA NC, TOLERATING WELL, O2 SAT 95%. NO C/O PAIN. ON PUBLIC ADMINISTRATION PROFESSOR, NSR HR 90s. LATEST TEMP 98.1F, AFEBRILE. BONG MIDLINE C/D/I, FLUSHING WELL. (R) FEMORAL HD CATH INTACT. SITTER AT BEDSIDE AT ALL TIMES. FREQUENT VISUAL CHECKS DONE THROUGHOUT THE SHIFT. REMAINS ON 5150 BED HOLD. PATIENT WAS ASSISTED TO THE RESTROOM BY SITTER FOR SAFETY. BED LOCKED AND IN LOW POSITION. HOB ELEVATED. SIDE RAILS X 2 UP. CALL LIGHT WITHIN REACH. WILL ENDORSE TO AM SHIFT NURSE FOR CONTINUITY OF CARE. Addendum: 10/18/19 at 0724 by SAM MARQUEZ RN ENDORSED TO AM SHIFT NURSE THAT PER FAMILY REQUEST, HAVE DR. RASHID CALL DR. CARSON REGARDING THE PATIENT AND COORDINATE WITH EACH OTHER. PER AM SHIFT NURSE PARRIS, SHE LEFT A MESSAGE TO DR. CARSON'S OFFICE YESTERDAY.
[2019-10-18 06:42] LABS: CALCIUM, SERUM 7.6 mg/dL (8.5-10.1); CREATININE 0.6 mg/dL (0.6-1.3); MAGNESIUM 1.5 mg/dL (1.8-2.4); PHOSPHORUS 3.2 mg/dL (2.5-4.9); POTASSIUM 2.9 mmol/L (3.5-5.1)
[2019-10-18 08:19] LABS: BASOPHILS % (AUTO) 0.5 % (0.0-2.0); EOSINOPHILS % (AUTO) 4.9 % (0.0-6.0); HEMATOCRIT 35 % (33-45); HEMOGLOBIN 11.9 g/dL (11.5-14.8); LYMPHOCYTES # (AUTO) 0.9 /CMM (0.8-4.8); LYMPHOCYTES % (AUTO) 15.2 % (20.0-44.0); MEAN CORPUSCULAR HGB CONC 34 g/dl (31.0-36.0); MEAN CORPUSCULAR VOLUME 88 fL (82-100); MONOCYTES % (AUTO) 17.8 % (2.0-12.0); NEUTROPHILS # (AUTO) 3.6 /CMM (1.8-8.9); NEUTROPHILS % (AUTO) 61.6 % (43.0-81.0); PLATELET COUNT (AUTO) 185 /CMM (150-450); RED BLOOD CELL COUNT(AUTO) 3.97 MIL/uL (4.0-5.2); WHITE BLOOD COUNT (AUTO) 5.8 K/uL (4.3-11.0)
[2019-10-18] MEDS: PANTOPRAZOLE 40 MG VIAL IV SCH (08:43)
[2019-10-18] MEDS: ACETAMINOPHEN 325 MG TABLET PO PRN ×2 (08:43→22:04)
[2019-10-18 08:58] LABS: EOSINOPHILS % (MANUAL) 4 % (0-4); LYMPHOCYTES % (MANUAL) 11 % (16-48); MONOCYTES % (MANUAL) 12 % (0-11.0); NEUTROPHILS % (MANUAL) 73 (42-76)
[2019-10-18] MEDS: POTASSIUM CHLORIDE 20 MEQ TAB.PRT.SR PO SCH ×3 (11:11→13:25)
[2019-10-18] MEDS: Magnesium 1GM/D5W 100ML PREMIX 100 ML IV SCH ×2 (11:11→12:19)
--- NOTE | 2019-10-18 11:16 | NUR ---
Patient asking to go outside at this time. Ambulatory with sitter present to use the restroom. Education this is a heart monitored floor and would not be able to accommodate at this time. Bennett Mitchell RN
--- NOTE | 2019-10-18 13:32 | NUR ---
Doctor MD Sharad, present with parents to evaluate patient. He also called Doctor Clare spoke with MD regarding patient status. He notes if she is medically stable and bed is available then over the weekend possibly the psych social worker or outsole caser may help arrange the discharge. Spoke with Doctor De Guzman about patient ambulating hallway. She concurs if patient stable/no signs of bleeding. Bennett Mitchell RN
[2019-10-18] MEDS: GUAIFENESIN LA 600 MG TABLET.SA PO SCH (17:06)
--- NOTE | 2019-10-18 17:58 | NUR ---
Doctor Demi removal of right femoral triple lumen. Pressure maintanance for hemostasis. Patient encouragement for bedrest for 4 hours. Patient family member, Blair Schmittt, Father, assist by script writer to locate case management office upstairs to discuss alternative discharge plan as [facility] where Doctor Sparks is working does not have beds available. Bennett Mitchell RN
--- NOTE | 2019-10-18 19:16 | NUR ---
Handoff with night team RN, Liana. Bennett Mitchell
--- NOTE | 2019-10-18 19:20 | NUR ---
RN OPENING NOTES PATIENT IN BED, AWAKE, A/OX4, ABLE TO MAKE NEEDS KNOWN. FAMILY AT BEDSIDE. ON TELE MONITOR ST WITH HR 100'S. ON O2 AT 2LPM VIA NC, TOLERATING WELL, NO SOB OR RESPIRATORY DISTRESS NOTED. IV SITE BONG MIDLINE SITE C/D/I, FLUSHING AND PATENT, NO INFILTRATION/INFECTION NOTED, IV ANTIBIOTIC RUNNING ORDERED. C/O PAIN 6/10 ON LEFT AC WITH REDNESS AND BANDAID NOTED, FAMILY REQUESTING WARM TOWEL, WARM TOWEL PROVIDED. SITTER AT BEDSIDE FOR PT SAFETY. SAFETY MEASURES IN PLACE; CALL LIGHT WITHIN REACH, SIDE RAILS UP X2, HOB ELEVATED, BED LOCKED AND IN LOWEST POSITION. WILL CONT TO MONITOR CLOSELY.
--- NOTE | 2019-10-18 20:45 | NUR ---
RN NOTES PATIENT C/O URINARY URGENCY/FREQUENCY, NO BLADDER DISTENSION NOTED, ASKED PT IF SHE HAS HX OF UTI, STATED NO. PAGED EDGE [facility]USHER HOSPITALIST AND ORDERED URINE CX. WILL ATTEND TO ORDERS.
--- NOTE | 2019-10-18 22:00 | NUR ---
RN NOTES PATIENT REQUESTING FOR TYLENOL FOR LEFT AC PAIN 6/10 AND RESTORIL FOR SLEEP. ADMINISTERED PRN TYLENOL AND RESTORIL.
[2019-10-18] MEDS: TEMAZEPAM 7.5 MG CAPSULE PO PRN (22:04)
[2019-10-19] VITALS: BP 107/56
--- NOTE | 2019-10-19 | NUR ---
RN NOTES RN ROUNDING DONE, PATIENT SLEEPING, NO ACUTE DISTRESS NOTED. SITTER AT BEDSIDE. WILL CONT TO MONITOR.
[2019-10-19] MEDS: VANCOMYCIN 1.25 GM in IV D5W 250 ML IV SCH ×2 (00:46→08:55)
[2019-10-19 04:00] VITALS: BP 107/65
[2019-10-19] MEDS: PIPERACILLIN /TAZOBACTAM 4.5 G in IV D5W 50 ML IV SCH ×2 (04:31→10:46)
--- NOTE | 2019-10-19 06:57 | NUR ---
RN CLOSING NOTES PATIENT IN BED, AWAKE, A/OX4, ABLE TO MAKE NEEDS KNOWN. ON TELE MONITOR ST WITH HR 100'S. ON O2 AT 2LPM VIA NC, TOLERATING WELL, NO SOB OR RESPIRATORY DISTRESS NOTED. PT AFEBRILE THROUGHOUT SHIFT. IV SITE BONG MIDLINE SITE C/D/I, FLUSHING AND PATENT, NO INFILTRATION/INFECTION NOTED. SITTER AT BEDSIDE FOR PT SAFETY. ALL MD ORDERS ATTENDED, ALL NEEDS ANTICIPATED AND MET. SAFETY MEASURES IN PLACE; CALL LIGHT WITHIN REACH, SIDE RAILS UP X2, HOB ELEVATED, BED LOCKED AND IN LOWEST POSITION. WILL ENDORSE TO AM RN FOR MONSTER.
[2019-10-19 07:19] LABS: BASOPHILS % (AUTO) 0.5 % (0.0-2.0); EOSINOPHILS % (AUTO) 3.6 % (0.0-6.0); HEMATOCRIT 33 % (33-45); HEMOGLOBIN 11.1 g/dL (11.5-14.8); LYMPHOCYTES # (AUTO) 1.4 /CMM (0.8-4.8); LYMPHOCYTES % (AUTO) 17.9 % (20.0-44.0); MEAN CORPUSCULAR HGB CONC 34 g/dl (31.0-36.0); MEAN CORPUSCULAR VOLUME 87 fL (82-100); MONOCYTES # (AUTO) 1.2 /CMM (0.1-1.30); MONOCYTES % (AUTO) 15.8 % (2.0-12.0); NEUTROPHILS # (AUTO) 4.8 /CMM (1.8-8.9); NEUTROPHILS % (AUTO) 62.2 % (43.0-81.0); PLATELET COUNT (AUTO) 272 /CMM (150-450); RED BLOOD CELL COUNT(AUTO) 3.75 MIL/uL (4.0-5.2); WHITE BLOOD COUNT (AUTO) 7.7 K/uL (4.3-11.0)
[2019-10-19 07:24] LABS: CALCIUM, SERUM 8.2 mg/dL (8.5-10.1); CREATININE 0.8 mg/dL (0.6-1.3); MAGNESIUM 1.8 mg/dL (1.8-2.4); PHOSPHORUS 4.3 mg/dL (2.5-4.9); POTASSIUM 3.5 mmol/L (3.5-5.1)
[2019-10-19] MEDS: PANTOPRAZOLE 40 MG VIAL IV SCH (08:55)
[2019-10-19] MEDS: GUAIFENESIN LA 600 MG TABLET.SA PO SCH (08:55)
[2019-10-19] MEDS ORDERED: LEVO750T46 PO (10:08)
[2019-10-19] MEDS ORDERED: GUAI600T53 PO (10:08)
[2019-10-19] MEDS ORDERED: DOXY100C2 PO (10:13)
--- NOTE | 2019-10-19 11:00 | NUR ---
TELE/RN NOTES RECEIVED PATIENT FROM GUERDA MONSON. PATIENT IS ALERT AND ORIENTED X4. NO PAIN OR ACUTE DISTRESS AT THIS TIME. RESPIRATION EVEN AND UNLABORED. SKIN IS DRY WARM TO TOUCH. FAMILY MEMBERS AT BEDSIDE. ALL NEEDS ANTICIPATED. CALL LIGHT WITHIN REACHED. BED LOCKED AND IN LOWEST POSITION. SAFETY MAINTAINED. WILL CONTINUE TO MONITOR CLOSELY.
--- NOTE | 2019-10-19 12:00 | NUR ---
TELE/PAYROLL PROFESSIONAL NOTES TWO EMT FROM [facility] ARRIVED IN THE UNIT. ALL DISCHARGE PAPERS WAS GIVEN AND SIGNED BY FATHER AT BEDSIDE. BELONGINGS WAS SIGN AND GIVEN WELL. ORIGINAL COPY OF THE 5250 HOLD WAS ALSO GIVEN. FINAL SKIN ASSESSMENT DONE. SKIN IS INTACT. REPORT WAS GIVEN TO GUERDA LYNN IN [facility]. PATIENT WAS THEN HELPED TO BE PLACED IN THE GURNEY. PATIENT LEFT THE HOSPITAL IN STABLE CONDITION ALONG WITH HER PARENTS.
== END 2019-10-19 11:58 | DRG 917 ==
LOC: ER 10:37 → ICU 12:54 → MEDSG2 10-16 18:38 → ICU 10-16 19:32 → TELE1 10-17 09:13
PROVIDERS: ADMIT Registered Nurse; ATTEND Student in an Organized Health Care Education/Training Program
PROC: 5A1D70Z Performance of Urinary Filtration, Intermittent, Less than 6 Hours Per Day (ICD-10-PCS; principal; 2019-10-13)
PROC: 05H533Z Insertion of Infusion Device into Right Subclavian Vein, Percutaneous Approach (ICD-10-PCS; principal; 2019-10-13)
PROC: 06HY33Z Insertion of Infusion Device into Lower Vein, Percutaneous Approach (ICD-10-PCS; principal; 2019-10-13)
DX: T45.0X2A Poisoning by antiallergic and antiemetic drugs, intentional self-harm, initial encounter (principal); A41.50 Gram-negative sepsis, unspecified; G92 Toxic encephalopathy; J69.0 Pneumonitis due to inhalation of food and vomit; J15.6 Pneumonia due to other Gram-negative bacteria; F20.0 Paranoid schizophrenia; Y92.009 Unspecified place in unspecified non-institutional (private) residence as the place of occurrence of the external cause; Z91.5 Personal history of self-harm; I10 Essential (primary) hypertension; F31.9 Bipolar disorder, unspecified; I45.81 Long QT syndrome; F10.129 Alcohol abuse with intoxication, unspecified; Y90.3 Blood alcohol level of 60-79 mg/100 ml; T42.6X2A Poisoning by other antiepileptic and sedative-hypnotic drugs, intentional self-harm, initial encounter; T43.592A Poisoning by other antipsychotics and neuroleptics, intentional self-harm, initial encounter; K76.89 Other specified diseases of liver
CPT/HCPCS: 36415; 36600; 70450-TC; 70551-TC; 71045-TC; 80048-TC; 80053-TC; 80061-TC; 80076-TC; 80164-TC; 80202-TC; 80305; 81000-TC; 82140-TC; 82310-TC; 82962-TC; 83735-TC; 84100-TC; 84132-TC; 84443-TC; 84703-TC; 85025-TC; 87040-TC; 87070-TC; 87081-TC; 87086-TC; 90935-TC; 92526; 92611-TC; 95819-TC; 97116-TC; 97530-TC; A4216; A4217; C9113; G0378; G0480; J0696; J1956; J2405; J2543; J3370; J3475; J3480; J3490; J7030; J7040; J7050; J7060